=== PATIENT | male | born 1955 | race Caucasian/White ===

== ENCOUNTER → 2022-08-11 13:28 | Outpatient (CLI) | payer MEDICARE, BC, SELFPAY ==
--- NOTE | ~2022-08-11 | XR_ITS ---
XR wrist RT 2V DATE: 08/11/2022 13:50 INDICATION: Radial pain for 6 to 7 months TECHNIQUE: AP and lateral views COMPARISON: None FINDINGS: There are prominent bony ossicles at the dorsal aspect of the radiocarpal joint. These are corticated, apparently chronic, the larger ossicle measuring approximately 2.8 x 4.8 mm. There is grecia rowing at the radiocarpal joint. There is mild osteophytic change at the first carpometacarpal joint. There is prominent osteoarthritic change at the second and third metacarpophalangeal joints. No recent fracture or dislocation, periosteal reaction or bone destruction of the right wrist is dete cted. 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
== END ==
DX: M25.531 Pain in right wrist (principal)
CPT/HCPCS: 73100